=== PATIENT | female | born 1975 | race Caucasian/White ===

== ENCOUNTER 2018-07-04 10:11 | Outpatient (CLI) | payer OTHER | END 2018-07-04 10:12 | disposition home or self-care (01) | LOC: BICMAMMO 10:11 | PROVIDERS: ATTEND Obstetrics & Gynecology | DX: Z12.31 Encounter for screening mammogram for malignant neoplasm of breast (principal); R92.1 Mammographic calcification found on diagnostic imaging of breast | CPT/HCPCS: 77063; 77067 ==

== ENCOUNTER 2019-11-05 10:22 | Emergency (ER) | payer OTHER ==
--- NOTE | 2019-11-05 12:05 | CT ---
CT HEAD WITHOUT CONTRAST: Date: 11/05/2019 INDICATION: Fall with loss of consciousness. HISTORY: Injury this past Tuesday with ER visit in [place] which described bleed. FINDINGS: Ventricles have normal size and position. No evidence of intracranial hemorrhage identified. No edema , mass, or infarct seen. Paranasal sinuses and mastoids are well aerated. IMPRESSION: No acute intracranial process identified. POS: H
== END 2019-11-05 15:10 | disposition home or self-care (01) ==
LOC: ERS 10:22
DX: S06.9X1A Unspecified intracranial injury with loss of consciousness of 30 minutes or less, initial encounter (principal); S05.12XA Contusion of eyeball and orbital tissues, left eye, initial encounter; S05.11XA Contusion of eyeball and orbital tissues, right eye, initial encounter; S80.811A Abrasion, right lower leg, initial encounter; G44.309 Post-traumatic headache, unspecified, not intractable; F07.81 Postconcussional syndrome; V80.919A Animal-rider injured in unspecified transport accident, initial encounter
CPT/HCPCS: 70450

== ENCOUNTER 2021-06-04 10:10 | Outpatient (CLI) | payer OTHER | END 2021-06-04 10:11 | disposition home or self-care (01) | LOC: BICMAMMO 10:10 | PROVIDERS: ATTEND Obstetrics & Gynecology | DX: Z12.31 Encounter for screening mammogram for malignant neoplasm of breast (principal); Z98.82 Breast implant status | CPT/HCPCS: 77063; 77067 ==